=== PATIENT | female | born 1990 | race Two or more races ===

== ENCOUNTER 2018-08-22 14:26 | Observation (INO) | payer MEDICAID ==
[~2018-08-22] VITALS: Ht 160 cm; Wt 93.0 kg
[2018-08-22 14:37] VITALS: BP 112/66
[2018-08-22] MEDS ORDERED: SODIUM CHLORIDE 0.9% 1,000 ML IV ONE (16:00)
[2018-08-22 16:27] LABS: Urine Bacteria MANY /hpf (None Seen); Urine Blood 1+ /uL (Negative); Urine Mucus FEW (None Seen); Urine Specific Gravity 1.016 (1.001-1.035); Urine WBC 193 /hpf (0 - 5); Urine WBC Clumps PRESENT /hpf (None Seen)
[2018-08-22] MEDS ORDERED: CEFTRIAXONE SODIUM 2 GM in D5W 5% 50 ML IV ONE (16:45)
[2018-08-22 16:49] LABS: Basophils # (auto) 0 uL; Basophils % (auto) 0.2 % (0.0-2.0); Eosinophils # (auto) 0 uL; Hematocrit 34.2 % (36.0-46.0); Hemoglobin 11.8 g/dL (12.2-16.2); Lymphocytes # (auto) 0.9 uL; Lymphocytes % (auto) 6.9 % (10.0-50.0); Mean Corpuscular Hemoglobin 31.1 pg (28.0-32.0); Mean Corpuscular Hgb Conc. 34.6 g/dL (32.0-36.0); Mean Corpuscular Volume 89.8 fL (80.0-100.0); Monocytes # (auto) 1.4 uL; Monocytes % (auto) 9.9 % (0.0-12.0); Neutrophils # (auto) 11.4 uL; Platelet Count (auto) 236 10^3/uL (140-450); Red Blood Cells 3.81 10^6/uL (4.0-5.20); Red Cell Distribution Width 13.1 % (11.8-14.3); White Blood Cell 13.7 10^3/uL (4.4-10.8)
[2018-08-22] MEDS ORDERED: ACETAMINOPHEN 325 MG TAB PO ONE (18:45)
[2018-08-22 20:30] LABS: Alcohol, Urine < 3.0 mg/dL (0-5); Amphetamine Screen, Urine NEGATIVE (NEGATIVE); Barbiturate Scree,Urine NEGATIVE (NEGATIVE); Benzodiazephine Screen, Urine NEGATIVE (NEGATIVE); Cannabinoid Screen, Urine NEGATIVE (NEGATIVE); Cocaine Screen, Urine NEGATIVE (NEGATIVE); Opiate Scree,Urine NEGATIVE (NEGATIVE); Phencyclidine Screen, Urine NEGATIVE (NEGATIVE)
== END 2018-08-22 20:35 | disposition home or self-care (01) | DRG 566 ==
LOC: ER 14:29 → LDRP 14:55
PROVIDERS: ADMIT Specialist; ATTEND Specialist
DX: O23.42 Unspecified infection of urinary tract in pregnancy, second trimester (principal); N13.30 Unspecified hydronephrosis; O99.89 Other specified diseases and conditions complicating pregnancy, childbirth and the puerperium; R51 Headache; O26.892 Other specified pregnancy related conditions, second trimester; M54.9 Dorsalgia, unspecified; R11.0 Nausea; Z3A.23 23 weeks gestation of pregnancy
CPT/HCPCS: 36415; 59025; 76705; 76775; 80307; 81001; 81002; 85025; 96365; G0378; J0696; J7030; 96361; 96366; J7060

== ENCOUNTER 2019-11-01 16:13 | Emergency (ER) | payer MEDICAID, OTHER ==
[~2019-11-01] VITALS: Ht 160 cm; Wt 96.2 kg
[2019-11-01 16:18] VITALS: BP 100/60
[2019-11-01] MEDS ORDERED: IPRATROPIUM BROM 0.5 MG/2.5ML INH SOL NEB ONE (17:00)
[2019-11-01] MEDS ORDERED: ALBUTEROL SULF 2.5 MG/0.5ML(0.5%) NEB SOLN NEB ONE (17:00)
[2019-11-01] MEDS ORDERED: cefTRIAXone SOD 1,000 MG VL IM ONE (17:00)
== END 2019-11-01 17:48 | disposition home or self-care (01) ==
LOC: ER 16:13
DX: J20.9 Acute bronchitis, unspecified (principal); J02.9 Acute pharyngitis, unspecified
CPT/HCPCS: 94640; 96372; 99283; J0696; J7644

== ENCOUNTER 2020-03-26 14:09 | Emergency (ER) | payer OTHER ==
[~2020-03-26] VITALS: Ht 160 cm; Wt 99.8 kg
[2020-03-26 14:37] VITALS: BP 137/74
[2020-03-26] MEDS ORDERED: LORazepam 0.5 MG TAB PO ONE (15:00)
== END 2020-03-26 15:54 | disposition home or self-care (01) ==
LOC: ER 14:09
DX: F41.1 Generalized anxiety disorder (principal)

== ENCOUNTER 2020-12-31 06:36 | Emergency (ER) | payer OTHER ==
[~2020-12-31] VITALS: Ht 160 cm; Wt 95.3 kg
[2020-12-31 06:36] VITALS: BP 156/86
[2020-12-31 07:18] LABS: Basophils # (auto) 0 10 ^3/uL (0-0.2); Basophils % (auto) 0.1 % (0.0-2.0); Eosinophils # (auto) 0 10 ^3/uL (0-0.8); Eosinophils % (auto) 0.1 % (0.0-7.0); Hematocrit 46.1 % (36.0-46.0); Hemoglobin 15.7 g/dL (12.2-16.2); Lymphocytes # (auto) 0.6 10 ^3/uL (0.4-5.4); Lymphocytes % (auto) 3.8 % (10.0-50.0); Mean Corpuscular Hemoglobin 30.7 pg (28.0-32.0); Mean Corpuscular Volume 90.4 fL (80.0-100.0); Monocytes # (auto) 0.6 10 ^3/uL (0-1.3); Monocytes % (auto) 3.7 % (0.0-12.0); Neutrophils # (auto) 15.3 10 ^3/uL (1.6-8.6); Neutrophils % (auto) 92.3 % (37.0-80.0); Platelet Count (auto) 306 10^3/uL (140-450); Red Cell Distribution Width 12.8 % (11.8-14.3); White Blood Cell 16.6 10^3/uL (4.4-10.8)
[2020-12-31 07:32] LABS: Calcium 8.9 mg/dL (8.5-10.1); Potassium 3.9 mmol/L (3.5-5.1)
[2020-12-31 07:36] LABS: BUN/Creatinine Ratio 18.5; Bilirubin, Total 0.7 mg/dL (0.2-1.0); Total Protein 8.1 g/dL (6.4-8.2)
== END 2020-12-31 08:05 | disposition left against medical advice (07) ==
LOC: ER 06:36
DX: R10.84 Generalized abdominal pain (principal); R11.2 Nausea with vomiting, unspecified; Z53.21 Procedure and treatment not carried out due to patient leaving prior to being seen by health care provider
CPT/HCPCS: 36415; 80053; 85025

== ENCOUNTER 2021-12-22 15:28 | Emergency (ER) | payer OTHER ==
[~2021-12-22] VITALS: Ht 160 cm; Wt 95.3 kg
[2021-12-22 15:29] VITALS: BP 119/90
[2021-12-22 16:09] LABS: Urine Bacteria NONE SEEN /hpf (None Seen); Urine Blood 2+ /uL (Negative); Urine Mucus FEW (None Seen); Urine Specific Gravity 1.031 (1.001-1.035); Urine WBC 3 /hpf (0 - 5)
[2021-12-22] MEDS ORDERED: ONDANSETRON ODT 4 MG TAB PO ONE (16:15)
[2021-12-22] MEDS ORDERED: SODIUM CHLORIDE 0.9% 1,000 ML IV ONE (16:15)
[2021-12-22 16:50] LABS: Hematocrit 44.7 % (36.0-46.0); Hemoglobin 15.9 g/dL (12.2-16.2); Mean Corpuscular Hemoglobin 31.4 pg (28.0-32.0); Mean Corpuscular Hgb Conc. 35.4 g/dL (32.0-36.0); Mean Corpuscular Volume 88.7 fL (80.0-100.0); Red Blood Cells 5.04 10^6/uL (4.0-5.20)
[2021-12-22 16:54] LABS: Band Neutrophils % (manual) 0; Basophils % (manual) 0 (0.0-2.0); Blast Cells 0; Eosinophils % (manual) 0 (0-7); Metamyelocytes % 0; Myelocytes % 0; Promyelocytes % 0; Reactive Lymphocytes 0
[2021-12-22] MEDS ORDERED: OSEL75CA5 PO (16:56)
[2021-12-22 17:17] LABS: Lymphocytes % (manual) 23 (10.0-50.0)
[2021-12-22 17:18] LABS: Monocytes % (manual) 27 (0-12)
== END 2021-12-22 18:26 | disposition left against medical advice (07) ==
LOC: ER 15:28
DX: J09.X2 Influenza due to identified novel influenza A virus with other respiratory manifestations (principal); Z79.899 Other long term (current) drug therapy; Z20.822 Contact with and (suspected) exposure to COVID-19
CPT/HCPCS: 36415; 71045; 81001; 81025; 85007; 85027; 87426; 87804; 96360; 96361; 99284; J7030; Q0162

== ENCOUNTER 2021-12-23 21:08 | Emergency (ER) | payer OTHER ==
[~2021-12-23] VITALS: Ht 160 cm; Wt 95.3 kg
[~2021-12-23 21:08] MED LIST: OSEL75CA5 PO
[2021-12-23 22:05] VITALS: BP 123/85
[2021-12-23] MEDS ORDERED: ONDANSETRON HCL 4 MG/2 ML VIAL IV ONE (23:30)
[2021-12-23] MEDS ORDERED: SODIUM CHLORIDE 0.9% 1,000 ML IV ONE (23:30)
[2021-12-23 23:47] LABS: Basophils # (auto) 0.1 10 ^3/uL (0-0.2); Basophils % (auto) 1.3 % (0.0-2.0); Eosinophils # (auto) 0 10 ^3/uL (0-0.8); Eosinophils % (auto) 0.3 % (0.0-7.0); Lymphocytes # (auto) 1.4 10 ^3/uL (0.4-5.4); Mean Corpuscular Hemoglobin 31.9 pg (28.0-32.0); Mean Corpuscular Hgb Conc. 35.6 g/dL (32.0-36.0); Mean Corpuscular Volume 89.5 fL (80.0-100.0); Monocytes # (auto) 0.7 10 ^3/uL (0-1.3); Monocytes % (auto) 15.6 % (0.0-12.0); Neutrophils # (auto) 2.5 10 ^3/uL (1.6-8.6); Neutrophils % (auto) 52.8 % (37.0-80.0); Nucleated Red Blood Cells % 0.6 %; Red Blood Cells 5.03 10^6/uL (4.0-5.20); Red Cell Distribution Width 12.8 % (11.8-14.3); White Blood Cell 4.6 10^3/uL (4.4-10.8)
[2021-12-24 00:03] LABS: Albumin 3.7 g/dL (3.4-5.0); Calcium 8.7 mg/dL (8.5-10.1); Potassium 3.5 mmol/L (3.5-5.1)
[2021-12-24 00:07] LABS: BUN/Creatinine Ratio 11.9; Bilirubin, Total 0.4 mg/dL (0.2-1.0); Total Protein 7.6 g/dL (6.4-8.2)
[2021-12-24 02:12] LABS: Urine Bacteria FEW /hpf (None Seen); Urine Blood 1+ /uL (Negative); Urine Mucus FEW (None Seen); Urine Specific Gravity 1.026 (1.001-1.035); Urine WBC 4 /hpf (0 - 5)
[2021-12-24] MEDS ORDERED: CIPR-173 PO (02:15)
[2021-12-24] MEDS ORDERED: METR500T PO (02:15)
[2021-12-24] MEDS ORDERED: PERCOT PO (02:27)
[2021-12-24] MEDS ORDERED: ONDA-144 PO (02:27)
[2021-12-25] MEDS ORDERED: TRAM50TA2 PO (13:10)
[2021-12-25] MEDS ORDERED: OMEP-263 PO (13:10)
[2021-12-25] MEDS ORDERED: METO-281 PO (13:10)
[2021-12-25] MEDS ORDERED: SULF400T11 PO (13:10)
== END 2021-12-24 02:26 | disposition home or self-care (01) ==
LOC: ER 21:08
DX: K52.9 Noninfective gastroenteritis and colitis, unspecified (principal)
CPT/HCPCS: 36415; 71045; 74176; 80053; 81001; 83690; 84484; 84702; 85025; 93005; 96361; 96374; 99285; J2405; J7030

== ENCOUNTER 2021-12-25 10:52 | Emergency (ER) | payer OTHER ==
[~2021-12-25] VITALS: Ht 152.4 cm; Wt 6.9 kg
[~2021-12-25 10:52] MED LIST changes: +CIPR-173 PO; +METR500T PO; +ONDA-144 PO; +PERCOT PO
[2021-12-25 11:19] LABS: Basophils # (auto) 0.1 10 ^3/uL (0-0.2); Basophils % (auto) 2.9 % (0.0-2.0); Eosinophils # (auto) 0 10 ^3/uL (0-0.8); Eosinophils % (auto) 0.3 % (0.0-7.0); Hematocrit 45.3 % (36.0-46.0); Lymphocytes # (auto) 1.3 10 ^3/uL (0.4-5.4); Mean Corpuscular Hemoglobin 31.2 pg (28.0-32.0); Mean Corpuscular Hgb Conc. 35.3 g/dL (32.0-36.0); Mean Corpuscular Volume 88.5 fL (80.0-100.0); Monocytes # (auto) 0.6 10 ^3/uL (0-1.3); Neutrophils # (auto) 2.4 10 ^3/uL (1.6-8.6); Neutrophils % (auto) 54.8 % (37.0-80.0); Nucleated Red Blood Cells % 0.7 %; Red Blood Cells 5.13 10^6/uL (4.0-5.20); Red Cell Distribution Width 12.9 % (11.8-14.3); White Blood Cell 4.4 10^3/uL (4.4-10.8)
[2021-12-25] MEDS ORDERED: PROCHLORPERAZINE EDISYLATE 5 MG/ML 2ML VIAL IV ONE (11:30)
[2021-12-25] MEDS ORDERED: MORPHINE SULFATE INJECTION 2 MG/ML SYRG IV ONE (11:30)
[2021-12-25 11:34] LABS: Albumin 3.8 g/dL (3.4-5.0); BUN/Creatinine Ratio 11.2; Calcium 8.6 mg/dL (8.5-10.1); Potassium 3.1 mmol/L (3.5-5.1)
[2021-12-25 11:37] LABS: Bilirubin, Total 0.6 mg/dL (0.2-1.0)
[2021-12-25 11:49] LABS: Urine Bacteria FEW /hpf (None Seen); Urine Blood 1+ /uL (Negative); Urine Mucus FEW (None Seen); Urine Specific Gravity 1.032 (1.001-1.035); Urine WBC 219 /hpf (0 - 5)
[2021-12-25 12:01] LABS: Amphetamine Screen, Urine NEGATIVE (NEGATIVE); Barbiturate Scree,Urine NEGATIVE (NEGATIVE); Benzodiazephine Screen, Urine NEGATIVE (NEGATIVE); Cannabinoid Screen, Urine POSITIVE (NEGATIVE); Cocaine Screen, Urine NEGATIVE (NEGATIVE); Opiate Scree,Urine NEGATIVE (NEGATIVE); Phencyclidine Screen, Urine NEGATIVE (NEGATIVE)
[2021-12-25] MEDS ORDERED: POTASSIUM EFFERVESENT TAB 25 MEQ PO ONE (13:00)
[2021-12-25] MEDS ORDERED: METO-281 PO (13:10)
[2021-12-25] MEDS ORDERED: OMEP-263 PO (13:10)
[2021-12-25] MEDS ORDERED: TRAM50TA2 PO (13:10)
[2021-12-25] MEDS ORDERED: SULF400T11 PO (13:10)
[2021-12-25] MEDS ORDERED: cefTRIAXone 1GM/50ML D5W 50 ML IV ONE (13:15)
[2021-12-25 14:00] VITALS: BP 130/94
== END 2021-12-25 14:38 | disposition home or self-care (01) ==
LOC: ER 10:52
DX: K80.20 Calculus of gallbladder without cholecystitis without obstruction (principal); N39.0 Urinary tract infection, site not specified; K76.0 Fatty (change of) liver, not elsewhere classified; R11.2 Nausea with vomiting, unspecified; Z79.2 Long term (current) use of antibiotics; Z79.899 Other long term (current) drug therapy
CPT/HCPCS: 36415; 76705; 80053; 80307; 81001; 84702; 85025; 96365; 96375; 99285; J0696; J0780; J2270

== ENCOUNTER 2024-02-03 11:39 | Emergency (ER) | payer BC, MEDICAID ==
[~2024-02-03] VITALS: Ht 160 cm; Wt 96.0 kg
[~2024-02-03 11:39] MED LIST changes: +METO-281 PO; +OMEP-448 PO; +SULF400T11 PO; +TRAM50TA2 PO
[2024-02-03 12:38] LABS: Basophils # (auto) 0.1 10 ^3/uL (0-0.2); Basophils % (auto) 0.8 % (0.0-2.0); Eosinophils # (auto) 0.3 10 ^3/uL (0-0.8); Eosinophils % (auto) 3.2 % (0.0-7.0); Hematocrit 44.5 % (36.0-46.0); Hemoglobin 15.6 g/dL (12.2-16.2); Lymphocytes # (auto) 2.6 10 ^3/uL (0.4-5.4); Lymphocytes % (auto) 24.9 % (10.0-50.0); Mean Corpuscular Hemoglobin 32.4 pg (28.0-32.0); Mean Corpuscular Hgb Conc. 35.1 g/dL (32.0-36.0); Mean Corpuscular Volume 92.3 fL (80.0-100.0); Monocytes # (auto) 0.8 10 ^3/uL (0-1.3); Monocytes % (auto) 7.2 % (0.0-12.0); Neutrophils # (auto) 6.8 10 ^3/uL (1.6-8.6); Neutrophils % (auto) 63.9 % (37.0-80.0); Red Blood Cells 4.82 10^6/uL (4.0-5.20); Red Cell Distribution Width 12.6 % (11.8-14.3); White Blood Cell 10.6 10^3/uL (4.4-10.8)
[2024-02-03 12:53] LABS: INR 0.97 (0.9-1.15); Partial Thromboplastin Time 26.5 SEC (24.5-34.5); Prothrombin Time 10.3 sec (9.3-11.8)
[2024-02-03 12:55] LABS: Alanine Aminotransferase 25 U/L (7-40); Albumin 4.4 g/dL (3.2-4.8); Alkaline Phosphatase 87 U/L (46-116); Anion Gap 8 (5-15); Aspartate Aminotransferase 13 U/L (13-40); Bilirubin, Total 0.6 mg/dL (0.2-1.0); Blood Urea Nitrogen 10 mg/dL (9-23); Calcium 9.7 mg/dL (8.7-10.4); Carbon Dioxide 23 mmol/L (20-30); Chloride 109 mmol/L (98-107); Glucose 112 mg/dL (74-106); Lipase 33 U/L (12-53); Potassium 3.9 mmol/L (3.5-5.1); Sodium 140 mmol/L (136-145); Total Protein 7.2 g/dL (5.7-8.2)
[2024-02-03] MEDS: SODIUM CHLORIDE 0.9% 1,000 ML IVB ONE (13:19)
[2024-02-03] MEDS: MEPERIDINE HCL (50 MG/ML) 1 ML VIAL IM ONE (13:46)
[2024-02-03 13:47] VITALS: TEMP 98.3; O2SAT 97
[2024-02-03] MEDS: ONDANSETRON ODT 4 MG TAB PO ONE (13:47)
[2024-02-03] MEDS ORDERED: PRED20TA2 PO (13:58)
[2024-02-03] MEDS ORDERED: TRAM-626 PO (13:59)
[2024-02-03 14:17] VITALS: BP 142/85; PULSE 76; RESP 16
== END 2024-02-03 14:19 | disposition home or self-care (01) ==
LOC: ER 11:39
DX: M54.42 Lumbago with sciatica, left side (principal); R10.2 Pelvic and perineal pain; F41.9 Anxiety disorder, unspecified; Z79.899 Other long term (current) drug therapy
CPT/HCPCS: 36415; 72100; 80053; 83605; 83690; 84484; 84702; 85025; 85610; 85730; 96372; 99284; J2175; Q0162

== ENCOUNTER 2024-02-07 11:04 | Emergency (ER) | payer BC, MEDICAID ==
[~2024-02-07] VITALS: Ht 160 cm; Wt 95.6 kg
[~2024-02-07 11:04] MED LIST changes: +PRED20TA2 PO; +TRAM-626 PO
[2024-02-07 12:00] VITALS: TEMP 98
[2024-02-07] MEDS: MORPHINE SULFATE 4 MG/ML SYR/VIAL IM ONE (12:51)
[2024-02-07] MEDS ORDERED: HYDR-4902 PO (13:21)
[2024-02-07] MEDS: KETOROLAC TROMETH 30 MG/ML 1ML VIAL IM ONE (13:50)
[2024-02-07 13:53] VITALS: BP 140/100; PULSE 61; RESP 20; O2SAT 97
== END 2024-02-07 14:10 | disposition home or self-care (01) ==
LOC: ER 11:04
DX: M54.42 Lumbago with sciatica, left side (principal); F41.9 Anxiety disorder, unspecified; Z79.899 Other long term (current) drug therapy
CPT/HCPCS: 96372; 99284; J1885; J2270